=== PATIENT | male | born 1955 | race Caucasian/White ===

== ENCOUNTER 2017-03-25 11:06 | Emergency (ER) | payer OTHER ==
[2017-03-25 11:28] VITALS: BP 138/76
--- NOTE | 2017-03-25 13:10 | UC ---
Lower Extremity/Ankle HPI - HPI Summary HPI Summary: PT WAS PUSHING HIS TRACTOR 4 DAYS AGO WHEN HE HEARD A POP AND HAD PAIN AND SWELLING RIGHT CALF. THIS HAS MUCH IMPROVED BUT TODAY NOTICED SOME BRUISING TO RIGHT FOOT AND GOT CONCERNED. - History of Current Complaint Chief Complaint: UCLowerExtremity Stated Complaint: CALF MUSCLE/ANKLE/FOOT INJURY Time Seen by Provider: 03/25/17 12:28 Hx Obtained From: Patient Onset/Duration: Sudden Onset, Lasting Days, Still Present Severity Initially: Mild Severity Currently: Mild Pain Intensity: 2 Pain Scale Used: 0-10 Numeric Aggravating Factor(s): Ambulation Alleviating Factor(s): Rest, Elevation Able to Bear Weight: Yes - Allergies/Home Medications Allergies/Adverse Reactions: Allergies Allergy/AdvReac Type Severity Reaction Status Date / Time No Known Allergies Allergy Verified 03/25/17 11:28 Home Medications: Home Medications Antibiotic ? Name 03/25/17 [History] Stomach Acid Med ? Name 03/25/17 [History] PMH/Surg Hx/FS Hx/Imm Hx Previously Healthy: Yes - Surgical History Surgical History: Yes Surgery Procedure, Year, and Place: Ruptured spleen, Right arm surgery from laceration, Ear operations, Deaf in left ear - Family History Known Family History: Negative: Hypertension - Social History Alcohol Use: Daily Alcohol Amount: 3 BEERS/DAY Substance Use Type: None Smoking Status (MU): Current Every Day Smoker Type: Cigarettes Amount Used/How Often: 1 PPD Length of Time of Smoking/Using Tobacco: 35 years Have You Smoked in the Last Year: Yes Household Exposure Type: Cigarettes Review of Systems Constitutional: Negative Skin: Bruising Respiratory: Negative Cardiovascular: Negative Gastrointestinal: Negative Musculoskeletal: Calf Tenderness, Edema All Other Systems Reviewed And Are Negative: Yes Physical Exam Triage Information Reviewed: Yes Appearance: Well-Appearing, No Pain Distress, Well-Nourished Vital Signs: Initial Vital Signs Temp 98.6 F 03/25/17 11:24 Pulse 69 03/25/17 11:24 Resp 12 03/25/17 11:24 BP 138/76 03/25/17 11:24 Pulse Ox 100 03/25/17 11:24 Vital Signs Reviewed: Yes Eyes: Positive: Conjunctiva Clear ENT: Positive: Hearing grossly normal Neck: Positive: Supple Respiratory: Positive: No respiratory distress, No accessory muscle use Cardiovascular: Positive: Pulses Normal Abdomen Description: Positive: Soft Musculoskeletal: Positive: ROM Intact, Edema @ - MINIMAL EDEMA RIGHT ANKLE AND FULLNESS TO RIGHT GASTROC., Other: - RIGHT GASTROC TENDER. TENDONS INTACT INCLUDING ACHILLES. NO TENDERNESS WITH JANNETH RIGHT GASTROC. Neurological: Positive: Alert Psychological: Positive: Age Appropriate Behavior Skin: Positive: Other - BRUISING TO RIGHT MEDIAL FOOT BY HEEL. NON TENDER. NO EDEMA. Negative: rashes Lower Extremity Course/Dx - Differential Dx/Diagnosis Provider Diagnoses: 1. MUSCLE STRAIN - HEALING. 2. ECCHYMOSIS - RESOLVING Discharge - Discharge Plan Condition: Stable Disposition: HOME Patient Education Materials: Muscle Strain (ED) Referrals: Non Staff,Doctor [Primary Care Provider] - Additional Instructions: YOU LIKELY TORE SOME MUSCLE FIBERS IN YOUR RIGHT CALF AND THEY ARE NOW HEALING. THERE WAS LIKELY SOME BLEEDING DUE TO DAMAGED VESSELS AND THE BRUISING IN YOUR FOOT IS DUE TO GRAVITY'S EFFECTS ON THIS. IT SHOULD RESOLVE WITH TIME. SEEK FOLLOW UP IF YOUR PAIN WORSENS OR THE BRUISING DOES NOT RESOLVE EXPECTED. CALL THE NUMBER BELOW FOR ASSISTANCE IN ESTABLISHING WITH A PCP An additional resource available to assist in finding the appropriate physician for your health care needs is [facility] ([facility]). You may contact them by calling [phone].
== END 2017-03-25 13:01 | disposition home or self-care (01) ==
LOC: UCEAST 11:06
DX: S86.811A Strain of other muscle(s) and tendon(s) at lower leg level, right leg, initial encounter (principal); X50.0XXA Overexertion from strenuous movement or load, initial encounter; S90.31XA Contusion of right foot, initial encounter; F17.210 Nicotine dependence, cigarettes, uncomplicated
CPT/HCPCS: 99211; G0463